=== PATIENT | male | born 1990 | race Caucasian/White ===

== ENCOUNTER 2019-08-17 15:02 | Emergency (ER) | payer MEDICAID ==
[~2019-08-17] VITALS: Ht 160 cm; Wt 72.6 kg
[2019-08-17 16:07] VITALS: BP 151/99
--- NOTE | 2019-08-17 16:11 | NUR ---
WAIT AT LOBBY
[2019-08-17] MEDS ORDERED: IBUPROFEN 400 MG TAB PO ONE (17:40)
[2019-08-17] MEDS ORDERED: ACETAMINOPHEN EXTRA STRENGTH 500 MG TAB PO ONE (17:40)
--- NOTE | 2019-08-17 18:23 | NUR ---
PT AMB TO [facility]
--- NOTE | 2019-08-17 18:23 | NUR ---
PT AMBULATED TO ER CHAIR B
--- NOTE | 2019-08-17 18:24 | NUR ---
28/M BIB SELF C/O HEADACHE. PT STATED " SOMETHING WRONG IN MY HEAD" MED HX: HIV. PATIENT STATES PAIN OF 5/10 AT THIS TIME. ER MD MADE AWARE OF PT STATUS.
--- NOTE | 2019-08-17 18:41 | NUR ---
DR. LOWE CHAIRSIDE.
[2019-08-17] MEDS ORDERED: MECLIZINE 25 MG TAB PO ONE (18:50)
--- NOTE | 2019-08-17 18:52 | NUR ---
VERBAL ORDER RECIEVED FROM ER PHYSICIAN Carolyn LOWE FOR A VISUAL ACUITY ON PATIENT. PATIENT'S VISUAL ACUITY IS RIGHT 20/70, LEFT 20/50, AND BOTH EYES 20/40. PATIENT STATES THAT WITH THE RIGHT ONLY, LEFT ONLY, AND WITH BOTH EYES THE LETTERS APPEARED BLURRY BUT WAS STILL ABLE TO READ SOME OF THE LETTERS. PATIENT ALSO STATES THAT HE WEARS NO CORRECTIVE LENSES OR GLASSES.
--- NOTE | 2019-08-17 19:06 | NUR ---
PT RETURNED FROM CT VIA WHEELCHAIR.
--- NOTE | 2019-08-17 19:16 | NUR ---
RECIEVED REPORT FROM KRISHNA HILLMAN. TRANSFER OF CARE AT THIS TIME.
[2019-08-17 19:40] VITALS: BP 130/70
--- NOTE | 2019-08-17 19:40 | NUR ---
Patient discharged with v/s stable. Written and verbal after care instructions given and explained. Patient alert, oriented and verbalized understanding of instructions. Ambulatory with steady gait. All questions addressed prior to discharge. ID band removed. Patient advised to follow up with PMD. Rx of FLONASE, AUGMENTIN given. Patient educated on indication of medication including possible reaction and side effects. Opportunity to ask questions provided and answered.
== END 2019-08-17 19:40 | disposition home or self-care (01) ==
LOC: MED 15:02
DX: J32.9 Chronic sinusitis, unspecified (principal); R42 Dizziness and giddiness
CPT/HCPCS: 70450; 99284; J8597